=== PATIENT | female | born 1950 | race Caucasian/White ===

== ENCOUNTER 2019-12-30 16:10 | Inpatient (IN) ==
[2019-12-30] MEDS ORDERED: HYDROmorphone 0.5 MG/0.5 ML SYRINGE IV ONE ×2 (16:24→17:52)
--- NOTE | 2019-12-30 16:37 | Emergency Department Note ---
Lower Extremity Injury HPI General Chief Complaint: Extremity Injury, Lower Stated Complaint: Right leg and hip pain Time Seen by Provider: 12/30/19 16:17 Source: patient Mode of arrival: wheelchair Limitations: no limitations History of Present Illness HPI Narrative: Narrative: 69-year-old female patient referred back to the emergency department for additional imaging. Patient was seen yesterday by a colleague after falling at home. During her visit she was worked up with radiographs of her right femur (this was decided for maximum pain yesterday). During this time the provider did not see any acute fractures. However, during further review by the radiologist he noted a possible right subcapital hip fra cture. He recommended further imaging. She is here to obtain those images. She complains of persistent and worsening right hip pain. She is currently suffering from chronic pain and is under a pain contract by her primary care providers. She currently rates her pain at 7/10. She has been nonweightbearing since the injury yesterday.. She mentions that the pain shoots down her leg at times. She has past history of pelvic fracture back in August of this year. ROS: Denies systemic illness, fever, sweats, chills. Denies headaches, tinnitus, or vision changes. Denies runny nose, sinus congestion, or cough. Denies shortness of breath. Denies retrosternal chest pain or palpitations. Denies abdominal pain, nausea, or vomiting. Admits to chronic diarrhea diarrhea. Admits to generalized weakness. Related Data Home Medications Medication Instructions Recorded Confirmed hydrocodone-acetaminophen 1 tab PO Q6HP PRN 09/27/19 12/30/19 cholestyramine (with sugar) 4 gram 4 g PO QDAY each 10/27/19 12/30/19 powder for susp in a packet cholecalciferol (vitamin D3) 50 3,000 mcg PO QDAY cap 11/29/19 12/30/19 mcg (2,000 unit) capsule aspirin 81 mg tablet,delayed 81 mg PO QDAY 12/16/19 12/30/19 release Previous Rx's Medication Instructions Recorded lisinopril 20 mg tablet 20 mg PO QDAY #30 tab 10/27/19 hydrocodone-acetaminophen 1 tab PO Q4H PRN #10 tab 12/30/19 Allergies Allergy/AdvReac Type Severity Reaction Status Date / Time No Known Drug Allergies Allergy Verified 12/30/19 03:18 Review of Systems ROS ROS Narrative: Narrative: All systems ED: reviewed and negative except as stated. [facility] Narrative Patient History Narrative: Narrative: Medical/Surgical/Family History All Active Problems (Updated 12/30/19 @ 19:37 by Kota Gomez PA-C) Fall (Acute) Hip sprain (Acute) Closed fracture of right hip (Acute) Inability to walk (Chronic) Macrocytosis (Chronic) Microscopic hematuria (Chronic) Smoker (Chronic) Free monoclonal light chain (Chronic) Osteoporosis (Chronic) Solitary pulmonary nodule on lung CT (Chronic) Gallstone (Chronic) Coronary atherosclerosis (Chronic) Hypokalemia due to loss of potassium (Chronic) Ulnar nerve palsy (Chronic) Vitamin D deficiency (Chronic) Chronic pain (Chronic) Bowel obstruction (Chronic) Pelvic pain (Chronic) Acute renal failure (Chronic) Protein calorie malnutrition (Chronic) Hyponatremia (Chronic) Metabolic acidosis (Chronic) Cigarette smoker (Chronic) COPD (chronic obstructive pulmonary disease) (Chronic) Hypertension, essential (Chronic) Multiple pelvic fractures (Chronic) Medical History Acute renal failure (Chronic) Bowel obstruction (Chronic) Chronic pain (Chronic) Cigarette smoker (Chronic) COPD (chronic obstructive pulmonary disease) (Chronic) Coronary atherosclerosis (Chronic) Free monoclonal light chain (Chronic) Gallstone (Chronic) Hypertension, essential (Chronic) Lisinopril/HCT 1. Stop salt loading 2. Stop thiazides Hypokalemia due to loss of potassium (Chronic) HCTZ most likely cause Hyponatremia (Chronic) Most likely HCTZ and triggered by pain with broken pelvis with ADH release from pain response. Inability to walk (Chronic) Macrocytosis (Chronic) Metabolic acidosis (Chronic) Either volume contraction from thiazides and/or in response to COPD and underlying resp acidosis. Would need an ABG to ferret out but not really needed. Microscopic hematuria (Chronic) Multiple pelvic fractures (Chronic) From fall; early July 2019. Osteoporosis (Chronic) Pelvic pain (Chronic) Protein calorie malnutrition (Chronic) Smoker (Chronic) Solitary pulmonary nodule on lung CT (Chronic) Ulnar nerve palsy (Chronic) Vitamin D deficiency (Chronic) Surgical History History of appendectomy (Chronic) History of excision of lesion (Chronic) Pancreatic cyst History of intestinal surgery (Chronic) History of partial cystectomy (Chronic) History of repair of hip fracture (Chronic) History of total hysterectomy with bilateral salpingo-oophorectomy (BSO) (Chronic) Family History Mother Ovarian cancer Osteoporosis Malignant neoplastic disease Father Malignant neoplastic disease Sister Essential hypertension Malignant neoplastic disease Social History Smoking Status: Current every day smoker Alcohol Intake Frequency: holiday/special occasion only Substance Use: does not use Exam Narrative Narrative: Narrative: General Limitations: no limitations General appearance: other (Well-developed, cachectic and chronically ill- appearing 69-year-old female laying semirecumbent on the emergency room gurney in no acute respiratory distress.) Head Head: atraumatic and normocephalic Expanded Lower Extremity Hip/Pelvis: Present normal inspection, full ROM (Decreased range of motion with inward rotation.), tenderness (Exquisite tenderness to palpation of the right hip.) and pelvis stable; Absent swelling, ecchymosis, deformity, crepitus, dislocation, erythema, external rotation, internal rotation and shortening Upper leg: Present normal inspection and full ROM; Absent tenderness Leg image: 1. Area of maximal pain. Knee: Present normal inspection and full ROM; Absent tenderness Lower leg: Present normal inspection and full ROM; Absent tenderness Ankle: Present normal inspection and full ROM; Absent tenderness Foot/toe: Present normal inspection and full ROM; Absent tenderness Neurovascular/Tendon: Present normal capillary refill and motor deficit (Decreased strength testing secondary to worsening pain); Absent pulse deficit and sensory deficit Gait: unable to bear weight Back Back: Present normal inspection and full ROM Neurological Neurological: Present alert and oriented X3 Psychiatric Psychiatric: Present normal affect and anxious Skin Skin: Present warm, dry and normal color Course Course Course Narrative: Patient is obviously uncomfortable and was given Dilaudid 0.5 mg IVP. I discussed the choice of imaging modality with the radiologist who recommended CT scan of the hip without contrast. This was ordered and revealed Impacted right subcapital hip fracture. There is no acetabular fracture. Radiologist did mention bilateral pubic bone fractures and a bilateral sacral alar fractures (present from previous pelvic fracture on 08/09/2019). After reviewing this data I discussed the findings with the patient. She has known history of osteoporosis and significant pelvic fracture in the past. With all of this in mind, I reached out to the on-call orthopedic surgeon (Dr. Vasquez) and discussed the management with him. At this time the orthopedic surgeon says the fracture is a sort may need surgically corrected if there is a lot of instability or pain involved. I mentioned that the patient has been nonambulatory since yesterday and she continues to have considerable pain. He is requested the patient be admitted to the hospitalist service and that he would likely take her to the operating room tomorrow to surgically correct fracture. Knowing this, I reached out to the hospitalist (Dr. Aviles) discussed admission with him. At this time Dr. Aviles has requested that screening laboratory studies be ordered and reviewed prior to admission. CBC, CMP, UA, rapid COVID test were ordered. Patient continues to complain of considerable pain to her right hip joint. She was given a second Dilaudid 0.5 mg IVP. A review of the patient's diagnostics shows the following: CBC within normal limits. CMP also within normal limits. Afterward, the hospitalist (Dr. Aviles) reviewed the additional data and accepted the patient for admission. All further treatment decisions, modalities, and ultimate patient disposition will be carried out by Dr. Aviles. Vital Signs Vital signs: Vital Signs Temperature 99.1 F H 12/30/19 16:11 Pulse Rate 93 H 12/30/19 16:11 Respiratory Rate 17 12/30/19 16:11 Blood Pressure 146/75 12/30/19 16:11 Pulse Oximetry (%) 96 12/30/19 16:11 Temperature 98.8 F 12/30/19 19:23 Pulse Rate 90 12/30/19 19:08 Respiratory Rate 16 12/30/19 17:49 Blood Pressure 127/77 12/30/19 19:08 Pulse Oximetry (%) 91 12/30/19 19:08 MDM MDM Narrative Medical decision making narrative: Narrative: Lab Data Result diagrams: 12/30/19 18:15 12/30/19 18:15 Labs: Lab Results 12/30/19 12/30/19 Range/Units 18:15 18:15 WBC 8.8 (4.50-11.00) K/mcL RBC 4.38 (3.59-5.38) M/mcL Hgb 13.5 (11.2-15.7) g/dL Hct 42.4 (34.1-44.9) % MCV 96.8 (80.0-100.0) fL MCH 30.8 (26.0-34.0) pg MCHC 31.8 (31.0-36.0) g/dL RDW 14.4 (11.5-14.5) % Plt Count 241 (140-440) K/mcL MPV 8.6 (7.4-10.4) fL Gran % 79.9 H (38.0-78.0) % Lymph % (Auto) 12.7 L (15.5-49.0) % [place] % (Auto) 5.8 (1.0-12.0) % Eos % (Auto) 1.1 (0.0-7.0) % Baso % (Auto) 0.5 (0.0-2.0) % Gran # 7.01 (1.80-8.00) K/mcL Lymph # (Auto) 1.11 L (1.50-4.80) K/mcL [place] # (Auto) 0.51 (0.10-0.90) K/mcL Eos # (Auto) 0.10 (0.00-0.70) K/mcL Baso # (Auto) 0.04 (0.00-0.30) K/mcL Sodium 138 (133-145) mmol/L Potassium 3.8 (3.3-5.1) mmol/L Chloride 103 (96-108) mmol/L Carbon Dioxide 22 (22-30) mmol/L Anion Gap 13.0 (8-16) BUN 8 (8-23) mg/dl Creatinine 0.6 (0.6-1.1) mg/dl GFR Calculation 94 Glucose 90 (70-105) mg/dL Calcium 9.4 (8.6-10.4) mg/dl Total Bilirubin 0.7 (0.0-1.0) mg/dL AST 16 (0-37) U/l ALT 18 (0-40) U/l Alkaline Phosphatase 107 (39-117) U/L Total Protein 7.6 (5.9-8.4) gm/dL Albumin 4.4 (3.2-5.2) gm/dL Globulin 3.2 (2.2-3.7) gm/dL Albumin/Globulin Ratio 1.4 (1.0-2.3) Radiology Data Radiology results reviewed: Yes I reviewed the patient's radiology results. Radiology results narrative: Ordering Physician: Jaciel Lees M.D. Date of Service: 12/30/19 Procedure(s): XR femur ap & lat RT Accession Number(s): [id number] INDICATION: fall TECHNIQUE: AP and lateral femur COMPARISON: Previous pelvis and right hip dated 08/09/2019 FINDINGS: Right femoral diaphysis and distal right femur are negative. Right hip is not optimally evaluated in this right femur study. Findings are suspicious for subcapital right hip fracture. Right hip x-rays recommended. MRI or CT scan neck performed depending on clinical circumstances and appearance of additional radiographs. Previous examination demonstrated bilateral pubic bone fractures. Healed fracture deformity of the right pubic bone is demonstrated on present examination IMPRESSION: 1. Negative right femur 2. Possible right subcapital hip fracture. Further imaging recommended Interpreted and Authenticated by: Bishop De La Garza 12/30/19 Ordering Physician: Kota Gomez PA-C Date of Service: 12/30/19 Procedure(s): CT hip RT wo con Accession Number(s): [id number] INDICATION: Fell yesterday. Persistent hip pain. TECHNIQUE: Thin section images through the right hemipelvis and hip. Sagittal and coronal reformatted images COMPARISON: Previous right femur dated 12/30/2019 FINDINGS: Mildly impacted right subcapital hip fracture with slight valgus angulation. Articular surface of the right femoral head is negative. Intertrochanteric region is normal. Fractures of the sacral ala bilaterally. There are bilateral pubic bone fractures. Pubic bone fractures are not acute and were demonstrated on plain film examination dated 08/09/2019. The sacral fractures probably occurred at the same time. IMPRESSION: 1. Impacted right subcapital hip fracture. No acetabular fracture 2. Bilateral pubic bone fractures. Bilateral sacral alar fractures. Interpreted and Authenticated by: Bishop De La Garza 12/30/19 Discharge Plan Patient/Caregiver Discharge Instructions Pt seen by ANTIQUE REPAIRER/PA only: Yes Clinical Impression: Osteoporosis, COPD (chronic obstructive pulmonary disease) Closed fracture of right hip Qualifiers: Encounter type: initial encounter Qualified Code(s): S72.001A - Fracture of unspecified part of neck of right femur, initial encounter for closed fracture Fall Qualifiers: Encounter type: subsequent encounter Qualified Code(s): W19.XXXD - Unspecified fall, subsequent encounter Patient Disposition: Xfer As Outpt/Obs ([facility]) Condition: Fair Follow up with: Francisco Stephen MD [Primary Care Provider] - Prescriptions: No Action aspirin 81 mg tablet,delayed release (DR/EC) 81 mg PO QDAY RF: 0 cholestyramine (with sugar) 4 gram powder in packet 4 g PO QDAY RF: 0 lisinopril 20 mg tablet 20 mg PO QDAY Qty: 30 RF: 11 cholecalciferol (vitamin D3) 50 mcg (2,000 unit) capsule 3,000 mcg PO QDAY RF: 0 hydrocodone-acetaminophen 1 TAB tablet 1 tab PO Q6HP PRN (Reason: Pain) RF: 0 hydrocodone-acetaminophen 5-325 mg tablet 1 tab PO Q4H PRN (Reason: pain) Qty: 10 RF: 0
--- NOTE | 2019-12-30 17:16 | Cat Scan Report ---
INDICATION: Fell yesterday. Persistent hip pain. TECHNIQUE: Thin section images through the right hemipelvis and hip. Sagittal and coronal reformatted images COMPARISON: Previous right femur dated 12/30/2019 FINDINGS: Mildly impacted right subcapital hip fracture with slight valgus angulation. Articular surface of the right femoral head is negative. Intertrochanteric region is normal. Fractures of the sacral ala bilaterally. There are bilateral pubic bone fractures. Pubic bone fractures are not acute and were demonstrated on plain film examination dated 08/09/2019. The sacral fractures probably occurred at the same time. IMPRESSION: 1. Impacted right subcapital hip fracture. No acetabular fracture 2. Bilateral pubic bone fractures. Bilateral sacral alar fractures. Interpreted and Authenticated by: Bishop De La Garza 12/30/19
[2019-12-30 19:08] LABS: Basophils # (Auto) 0.04 K/mcL (0.00-0.30); Basophils % (Auto) 0.5 % (0.0-2.0); Eosinophils % (Auto) 1.1 % (0.0-7.0); Granulocytes % (Auto) 79.9 % (38.0-78.0); Hematocrit 42.4 % (34.1-44.9); Hemoglobin 13.5 g/dL (11.2-15.7); Lymphocytes # (Auto) 1.11 K/mcL (1.50-4.80); Lymphocytes % (Auto) 12.7 % (15.5-49.0); Mean Cell Volume 96.8 fL (80.0-100.0); Mean Corpuscular HGB Conc 31.8 g/dL (31.0-36.0); Mean Platelet Volume 8.6 fL (7.4-10.4); Monocytes # (Auto) 0.51 K/mcL (0.10-0.90); Monocytes % (Auto) 5.8 % (1.0-12.0); Platelet Count 241 K/mcL (140-440); RBC 4.38 M/mcL (3.59-5.38); Red Cell Distribution Width 14.4 % (11.5-14.5); WBC 8.8 K/mcL (4.50-11.00)
--- NOTE | 2019-12-30 19:24 | Internal Med History&Physical ---
HPI History of Present Illness Patient information: Note initiated : 12/30/19 at 7:19 pm Service Date, if different from initiated Date: [] Patient: Malaika Dejesus a 69 y/o F admitted on for Right leg and hip pain. Chief Complaint: Fall/hip pain History of present illness: Ms. Dejesus is a 69 year old F with a history of hypertension who was visiting her friend and on her way out tripped on her own quad cane landing on the floor. She was brought in the ER yesterday when initial work-up was unremarkable. However on review she was noted to have a right subcapital hip fracture. Subsequently orthopedics was consulted and patient was advised hospitalization for hip fracture repair. Hospital service was consulted At the time evaluation patient is accompanied with her friend. She was able to answer most of the questions. She denied resting events including lightheadedness dizziness. She denied associated fever chills. Pain is currently well controlled on opioids. Review of systems A 10 point review system was performed and is negative except for ones cussed above [facility] Medical History Acute renal failure (Chronic) Bowel obstruction (Chronic) Chronic pain (Chronic) Cigarette smoker (Chronic) COPD (chronic obstructive pulmonary disease) (Chronic) Coronary atherosclerosis (Chronic) Free monoclonal light chain (Chronic) Gallstone (Chronic) Hypertension, essential (Chronic) Lisinopril/HCT 1. Stop salt loading 2. Stop thiazides Hypokalemia due to loss of potassium (Chronic) HCTZ most likely cause Hyponatremia (Chronic) Most likely HCTZ and triggered by pain with broken pelvis with ADH release from pain response. Inability to walk (Chronic) Macrocytosis (Chronic) Metabolic acidosis (Chronic) Either volume contraction from thiazides and/or in response to COPD and underlying resp acidosis. Would need an ABG to ferret out but not really needed. Microscopic hematuria (Chronic) Multiple pelvic fractures (Chronic) From fall; early July 2019. Osteoporosis (Chronic) Pelvic pain (Chronic) Protein calorie malnutrition (Chronic) Smoker (Chronic) Solitary pulmonary nodule on lung CT (Chronic) Ulnar nerve palsy (Chronic) Vitamin D deficiency (Chronic) Surgical History History of appendectomy (Chronic) History of excision of lesion (Chronic) Pancreatic cyst History of intestinal surgery (Chronic) History of partial cystectomy (Chronic) History of repair of hip fracture (Chronic) History of total hysterectomy with bilateral salpingo-oophorectomy (BSO) (Chronic) Family History Mother Ovarian cancer Osteoporosis Malignant neoplastic disease Father Malignant neoplastic disease Sister Essential hypertension Malignant neoplastic disease Social History (Updated 12/16/19 @ 11:43 by Beulah Sandoval) marital status: occupational status: retired occupation: Nurse leisure activities: other smoking status: Current every day smoker alcohol intake frequency: holiday/special occasion only substance use type: does not use MEDS/ALLERGIES Home Medications and Allergies Home Medications Medication Instructions Recorded Confirmed Type hydrocodone-acetaminophen 1 tab PO Q6HP PRN 09/27/19 12/30/19 History cholestyramine (with sugar) 4 gram 4 g PO QDAY each 10/27/19 12/30/19 History powder for susp in a packet lisinopril 20 mg tablet 20 mg PO QDAY #30 tab 10/27/19 12/30/19 Rx cholecalciferol (vitamin D3) 50 3,000 mcg PO QDAY cap 11/29/19 12/30/19 History mcg (2,000 unit) capsule aspirin 81 mg tablet,delayed 81 mg PO QDAY 12/16/19 12/30/19 History release hydrocodone-acetaminophen 1 tab PO Q4H PRN #10 tab 12/30/19 12/30/19 Rx Allergies Allergy/AdvReac Type Severity Reaction Status Date / Time No Known Drug Allergies Allergy Verified 12/30/19 03:18 EXAM Constitutional Vitals: Temp Pulse Resp BP Pulse Ox 99.1 F H 90 16 127/77 91 12/30/19 16:11 12/30/19 19:08 12/30/19 17:49 12/30/19 19:08 12/30/19 19:08 Head normocephalic Oral cavity moist No ear nose discharge Eye movement symmetrical Neck supple no lymphadenopathy S1-S2 occasionally irregular Nonlabored breathing Nondistended nontender abdomen Right lower extremity externally rotated, no cyanosis clubbing, joint swelling Skin no suspicious lesion Psych anxious but alert cooperative Neuro normal higher function DATA Data Completed and Pending Labs on day of discharge: Labs from last 24 hours 12/30/19 12/30/19 18:15 18:15 WBC 8.8 RBC 4.38 Hgb 13.5 Hct 42.4 MCV 96.8 MCH 30.8 MCHC 31.8 RDW 14.4 Plt Count 241 MPV 8.6 Gran % 79.9 H Lymph % (Auto) 12.7 L [place] % (Auto) 5.8 Eos % (Auto) 1.1 Baso % (Auto) 0.5 Gran # 7.01 Lymph # (Auto) 1.11 L [place] # (Auto) 0.51 Eos # (Auto) 0.10 Baso # (Auto) 0.04 Sodium Pending Potassium Pending Chloride Pending Carbon Dioxide Pending Anion Gap Pending BUN Pending Creatinine Pending GFR Calculation Pending Glucose Pending Calcium Pending Total Bilirubin Pending AST Pending ALT Pending Alkaline Phosphatase Pending Total Protein Pending Albumin Pending Globulin Pending Albumin/Globulin Ratio Pending A/P Narrative A/P Narrative: * Right hip fracture-continue pain management/keep n.p.o./orthopedic consult. Patient undergo operative intervention 7/10 a.m. * Preop risk evaluation-overall moderate to high risk however no prior history of CHF/CVA/ACS/decompensated heart failure or CKD. No history of IDDM. Recommend maintaining intraoperative map over 65 to maintain adequate cerebral and coronary perfusion. Patient will be a good rehab candidate. Continue postop capnometry/incentive spirometer use * History of hypertension hold DOMONIQUE inhibitor and restart postoperative once systolic over 140 * Prophylaxis SCDs Plan * Inpatient admit * Orthopedic consult * Pain management * N.p.o. after midnight * Hold DOMONIQUE inhibitor * PT OT nutrition support following surgery Time Spent With Patient Time: Total time spent is greater than 50% in coordination of care (as documented) at patient's floor/unit and/or counseling patient: Total time spent with greater than 50% in coordination of care (as documented) at patient's floor/unit and/or counseling patient:: Greater than 35 minutes
[2019-12-30 19:27] LABS: ALT/SGPT 18 U/l (0-40); AST/SGOT 16 U/l (0-37); Albumin 4.4 gm/dL (3.2-5.2); Albumin/Globulin Ratio 1.4 (1.0-2.3); Alkaline Phosphatase 107 U/L (39-117); Bilirubin,Total 0.7 mg/dL (0.0-1.0); Blood Urea Nitrogen 8 mg/dl (8-23); Calcium 9.4 mg/dl (8.6-10.4); Carbon Dioxide 22 mmol/L (22-30); Chloride 103 mmol/L (96-108); Globulin 3.2 gm/dL (2.2-3.7); Glomerular Filtration Rate 94; Glucose 90 mg/dL (70-105)
[2019-12-30] MEDS ORDERED: METOPROLOL TARTRATE 5 MG/5 ML VIAL IV PRN (20:59)
[2019-12-30] MEDS ORDERED: ACETAMINOPHEN 650 MG/65 ML BOTTLE IV PRN (20:59)
[2019-12-30] MEDS ORDERED: ONDANSETRON 4 MG/2 ML VIAL IV PRN (20:59)
[2019-12-30] MEDS ORDERED: hydrALAZINE 20 MG/ML VIAL IV PRN (20:59)
[2019-12-30] MEDS ORDERED: BISACODYL 10 MG SUPP.RECT PR PRN (20:59)
[2019-12-30] MEDS ORDERED: HYDROCODONE/APAP 7.5/325MG TABLET PO PRN (20:59)
[2019-12-30] MEDS ORDERED: MELATONIN 3 MG TABLET PO PRN (20:59)
[2019-12-30] MEDS ORDERED: POTASSIUM CHLORIDE 20 MEQ PACKET PO PRN (20:59)
[2019-12-30] MEDS ORDERED: MAGNESIUM SULFATE 2 GM/50 ML BAG IV PRN (20:59)
[2019-12-30] MEDS ORDERED: ONDANSETRON 4 MG ODT TABLET SL PRN (20:59)
[2019-12-30] MEDS ORDERED: ACETAMINOPHEN 325 MG TABLET PO PRN (20:59)
[2019-12-30] MEDS ORDERED: POLYETHYLENE GLYCOL 3350 17 GM PACKET PO PRN (20:59)
[2019-12-30] MEDS ORDERED: ACETAMINOPHEN 600 MG/60 ML BOTTLE IV PRN (21:15)
[2019-12-30] MEDS: HYDROmorphone 0.5 MG/0.5 ML SYRINGE IV PRN (21:34)
[2019-12-30] MEDS: SENNOSIDES/DOCUSATE SODIUM 1 TAB TABLET PO SCH (21:45)
[2019-12-30] MEDS: DOCUSATE SODIUM 100 MG CAPSULE PO SCH (21:45)
[2019-12-30] MEDS: 0.9 % SODIUM CHLORIDE 1,000 ML IV SCH (21:45)
[2019-12-30] MEDS: 0.9 % SODIUM CHLORIDE 10 ML SYRINGE IV SCH (21:51)
[2019-12-30] MEDS: HYDROcodone/APAP 5/325MG TABLET PO PRN (22:44)
[2019-12-30 23:02] LABS: Appearance,Urine CLEAR; Bilirubin,Urine NEG (NEG); Color,Urine YELLOW; Culture Indicated,Urine NO; Glucose,Urine (UA) NEGATIVE (NEG); Ketones,Urine NEG (NEG); Leukocyte Esterase,Urine NEG /uL (NEG); Nitrate,Urine NEG (NEG); Protein,Urine NEG (NEG); Specific Gravity,Urine 1.018 (1.000-1.035); Urine Blood NEG mg/dL (<0.03)
[2019-12-31] MEDS: 0.9 % SODIUM CHLORIDE 10 ML SYRINGE IV SCH ×3 (05:18→21:23)
[2019-12-31] MEDS: HYDROmorphone 0.5 MG/0.5 ML SYRINGE IV PRN ×2 (05:57→10:33)
[2019-12-31 06:59] LABS: Hemoglobin 11.4 g/dL (11.2-15.7); Mean Cell Volume 95.6 fL (80.0-100.0); Mean Corpuscular HGB Conc 32.6 g/dL (31.0-36.0); Mean Platelet Volume 8.9 fL (7.4-10.4); Platelet Count 204 K/mcL (140-440); RBC 3.66 M/mcL (3.59-5.38); Red Cell Distribution Width 14.6 % (11.5-14.5); WBC 7.2 K/mcL (4.50-11.00)
[2019-12-31 07:38] LABS: ALT/SGPT 12 U/l (0-40); AST/SGOT 13 U/l (0-37); Albumin 3.3 gm/dL (3.2-5.2); Albumin/Globulin Ratio 1.3 (1.0-2.3); Alkaline Phosphatase 77 U/L (39-117); Bilirubin,Direct < 0.2 mg/dL (0.0-0.3); Bilirubin,Total 0.4 mg/dL (0.0-1.0); Blood Urea Nitrogen 17 mg/dl (8-23); Calcium 8.5 mg/dl (8.6-10.4); Carbon Dioxide 18 mmol/L (22-30); Chloride 104 mmol/L (96-108); Globulin 2.5 gm/dL (2.2-3.7); Glomerular Filtration Rate 94; Glucose 91 mg/dL (70-105); Lactate Dehydrogenase 222 U/L (94-250); Phosphorous 3.6 mg/dL (2.7-4.5); Triglycerides 67 mg/dl (<150); Uric Acid 3.9 mg/dL (2.5-8.0)
[2019-12-31 08:26] LABS: Eosinophils % (Manual) 4 % (0-7); Lymphocytes % 17 % (15-49); Monocytes % (Manual) 10 % (1-12); Platelet Estimate NORMAL (NORMAL); RBC Morphology NORMAL (NORMAL); Segmented Neutrophils % 69 % (38-78)
[2019-12-31] MEDS ORDERED: ASPIRIN 81 MG TAB.CHEW PO SCH (09:00)
[2019-12-31] MEDS: MULTIVIT,THER IRON,CA,FA & MIN 1 TABLET PO SCH (09:45)
[2019-12-31] MEDS: DOCUSATE SODIUM 100 MG CAPSULE PO SCH ×2 (09:45→21:12)
--- NOTE | 2019-12-31 10:00 | Internal Med Progress Note ---
SUBJECTIVE Subjective Patient information: Note initiated : 12/31/19 at 9:57 am Service Date, if different from initiated Date: [] Patient: Malaika Dejesus a 69 y/o F admitted on 12/30/19 for Right leg and hip pain. Chief Complaint: [] Interval history: History of present illness: Ms. Dejesus is a 69 year old F with a history of hypertension who was visiting her friend and on her way out tripped on her own quad cane landing on the floor. She was brought in the ER yesterday when initial work-up was unremarkable. However on review she was noted to have a right subcapital hip fracture. Subsequently orthopedics was consulted and patient was advised hospitalization for hip fracture repair. Hospital service was consulted At the time evaluation patient is accompanied with her friend. She was able to answer most of the questions. She denied resting events including lightheadedness dizziness. She denied associated fever chills. Pain is currently well controlled on opioids. 12/30-patient doing better. Await surgery. Currently n.p.o. No overnight fever chills. Constitutional Vitals: Vital Signs Temp Pulse Resp BP Pulse Ox 98.4 F 75 18 107/65 90 12/31/19 03:49 12/31/19 03:49 12/31/19 03:49 12/31/19 03:49 12/31/19 03:49 Period Temp Pulse Resp BP Sys/Vilchis Pulse Ox Last 24 Hr 98.4 F-99.1 F 75-93 16-20 103-146/65-77 90-97 Intake and Output 12/30/19 12/31/19 12/31/19 21:59 05:59 13:59 Intake Total 330 Output Total 280 Balance 50 Weight 41.73 kg 41.73 kg Alert oriented Nonlabored breathing No anxiety Nondistended abdomen Intake & Output: Intake & Output 12/30/19 12/31/19 12/31/19 21:59 05:59 13:59 Intake Total 330 Output Total 280 Balance 50 Weight 41.73 kg 41.73 kg Intake: Oral 330 Output: Urine Catheter Amount 280 Other: Urine Appearance Uretheral (Fine) Clear Urine Color Dark Yellow Uretheral (Fine) Tea Colored Dark Yellow OBJ DATA Labs CBC & Chem 7: 12/31/19 05:50 12/31/19 05:50 Labs: Abnormal Lab Results 12/31/19 12/31/19 12/30/19 05:50 05:50 21:50 RDW 14.6 H Gran % Lymph % (Auto) Lymph # (Auto) Carbon Dioxide 18 L Calcium 8.5 L Total Protein 5.8 L Urine Urobilinogen 2.0 A 12/30/19 18:15 RDW Gran % 79.9 H Lymph % (Auto) 12.7 L Lymph # (Auto) 1.11 L Carbon Dioxide Calcium Total Protein Urine Urobilinogen Meds: Medications Acetaminophen (Tylenol) 650 mg PO Q4-6HP PRN; Protocol PRN Reason: Per Pain Protocol/Fever > 101 Hydrocodone Bitart/Acetaminophen (Protem 5/325mg) 1 tab PO Q4HP PRN; Protocol PRN Reason: pain Last Admin: 12/30/19 22:44 Dose: 1 tab Documented by: Aspirin (Aspirin) 81 mg PO DAILY [facility] Bisacodyl (Dulcolax) 10 mg AR Q2-3DAYS PRN PRN Reason: Constipation Cholestyramine Resin (Questran Light) 2 - 4 gm PO DAILY@0700 [facility] Docusate Sodium (Colace) 100 mg PO BID [facility] Last Admin: 12/31/19 09:45 Dose: Not Given Documented by: Hydralazine HCl (Apresoline) 10 mg IV Q4-6HP PRN PRN Reason: Hypertension Hydromorphone HCl (Dilaudid) 0 mg IV Q4HP PRN; Protocol PRN Reason: Per Pain Protocol Last Admin: 12/31/19 05:57 Dose: 0.5 mg Documented by: Sodium Chloride (Sodium Chloride 0.9%) 1,000 mls @ 50 mls/hr IV .Q20H [facility] Stop: 01/02/20 08:58 Last Admin: 12/30/19 21:45 Dose: 50 mls/hr Documented by: Magnesium Sulfate (Magnesium Sulfate) 2 gm in 50 mls @ 50 mls/hr IV UD PRN PRN Reason: MG = or < 1.7 Acetaminophen (Ofirmev) 600 mg in 60 mls @ 120 mls/hr IV Q6HP PRN; Protocol PRN Reason: Per Pain Protocol/Fever > 101 Iron Carb/Multivit/Garland/Folic Acid (Multivitamin W/Minerals) 1 tab PO DAILY [facility] Last Admin: 12/31/19 09:45 Dose: Not Given Documented by: Melatonin (Melatonin 3mg Tablet) 3 mg PO HSP PRN PRN Reason: Insomnia Metoprolol Tartrate (Lopressor) 5 mg IV Q5M PRN PRN Reason: Heart Rate > 140 bpm Ondansetron HCl (Zofran Odt) 4 mg SL Q4-6HP PRN; Protocol PRN Reason: Nausea And Vomiting Ondansetron HCl (Zofran) 4 mg IV Q4-6HP PRN; Protocol PRN Reason: Nausea And Vomiting Polyethylene Glycol (Miralax) 17 gm PO DAILYP PRN PRN Reason: Constipation Potassium Chloride (Klor-Con) 40 meq PO DAILYP PRN PRN Reason: K+ < 3.5 Senna/Docusate Sodium (Senna Plus Tablet) 1 tab PO HS [facility] Last Admin: 12/30/19 21:45 Dose: Not Given Documented by: Sodium Chloride (Saline Flush) 10 ml IV Q8 [facility] Last Admin: 12/31/19 05:18 Dose: Not Given Documented by: A/P Narrative A/P Narrative: * Right hip fracture-continue pain management/currently n.p.o. for surgery. Will review postop. * History of hypertension hold DOMONIQUE inhibitor and restart postoperative once sy stolic over 140 * Prophylaxis SCDs, start heparin post surgery Plan * Review postop * Continue pain management * Restart DOMONIQUE inhibitor post surgery once systolics over 140 * PT OT nutrition support following surgery * Case management coordinate discharge plan Time Spent With Patient Time: Total time spent is greater than 50% in coordination of care (as documented) at patient's floor/unit and/or counseling patient: Total time spent with greater than 50% in coordination of care (as documented) at patient's floor/unit and/or counseling patient:: Greater than 35 minutes QUALITY Stroke Symptom Onset Unknown: No VTE Deep Vein Thrombosis/Pulmonary Embolism Present on Admission: No
[2019-12-31] MEDS: CHOLESTYRAMINE/ASPARTAME 4 GM POWD.PACK PO SCH (10:48)
[2019-12-31] MEDS ORDERED: ceFAZolin 2 GM in DEXTROSE 5% IN WATER 50 ML IV SCH ×2 (11:15→12:45)
--- NOTE | 2019-12-31 11:50 | Consultation ---
DATE OF CONSULTATION: 12/31/2019 REQUESTING PROVIDER: Jaciel Lees M.D. CONSULTING PROVIDER: Dao Vasquez M.D. REASON FOR CONSULTATION: Right femoral neck fracture. HISTORY: This is a 69-year-old female who tripped apparently 2 days ago and had pain in her hip. She presented to the ER and got x-rays which they were thought to be negative, so she was discharged from the ER. She continued to have pain and unable to bear weight, so she returned to the ER, and a CT scan was obtained which showed she had a right subcapital femoral neck fracture. She does have history of recent nonoperative pelvic fractures. Her pain is made worse with weightbearing, better with rest. She denies any other significant associated injuries. PAST MEDICAL HISTORY: Renal failure, chronic pain, cigarette smoking, COPD, coronary artery disease, hypertension, and osteoporosis. PAST SURGICAL HISTORY: Appendectomy, pancreatic cyst excision, intestinal surgery, partial cystectomy, left hip fracture repair, and a total abdominal hysterectomy with bilateral salpingo-oophorectomy. MEDICATIONS: 1. Hydrocodone one p.o. q.6h. 2. Cholestyramine. 3. Lisinopril 20 mg a day. 4. Vitamin D3. 5. Aspirin 81 mg a day. ALLERGIES: No known drug allergies. SOCIAL HISTORY: She smokes every day. She is . She drinks alcohol only on special occasions and denies illicit drug use. FAMILY HISTORY: Positive for mother with ovarian cancer and osteoporosis. Father with cancer. Sister with hypertension and cancer. PHYSICAL EXAMINATION: VITAL SIGNS ON ADMISSION: Temperature 99.1, pulse 90, respirations 16, blood pressure 127/77, pulse ox 91%. GENERAL: She appears her stated age in no acute distress. She is oriented to person and place. Mood and affect are appropriate. HEART: Regular. LUNGS: Sound clear. EXTREMITIES: Bilateral upper extremities and left lower extremity show no obvious evidence of trauma and are normal to inspection, range of motion, stability and strength. Right lower extremity is normal to inspection. However, range of motion is limited secondary to pain. There is no gross instability noted. Her strength is diminished 3/5. Skin is intact. Sensation to light touch grossly intact. Pedal pulses are palpable. IMAGING: Her x-ray reviewed, as well CT scan that does show a mildly valgus impacted subcapital femoral neck fracture. There are multiple pubic symphysis and sacral fractures. IMPRESSION: Acute right subcapital valgus impacted femoral neck fracture in a 69-year-old female with multiple medical comorbidities. PLAN: I recommend proceeding with percutaneous screw fixation of the right femoral neck fracture. Risks of surgery were discussed, which include but are not limited to, bleeding; infection; injury to nerves, blood vessels, and other surrounding structures; nonunion or malunion of fracture; failure of hardware fixation; possibility of needing further surgeries. She understands and wishes to proceed. BJBrennen:siria Job ID: [id number] Doc ID: [id number] Dao Vasquez MD
[2019-12-31] MEDS ORDERED: MIDAZOLAM 2 MG/2 ML VIAL IV ONE (11:58)
[2019-12-31] MEDS ORDERED: fentaNYL 100 MCG/2 ML VIAL IV ONE (11:58)
[2019-12-31] MEDS ORDERED: GLYCOPYRROLATE 0.2 MG/ML VIAL IV ONE (11:58)
[2019-12-31] MEDS ORDERED: DEXAMETHASONE 10 MG/ML VIAL IV ONE (11:58)
[2019-12-31] MEDS ORDERED: KETAMINE 100 MG/ML ML IV ONE (11:58)
[2019-12-31] MEDS ORDERED: LIDOCAINE HCL/PF 100 MG/5 ML SYRINGE IV ONE (11:58)
[2019-12-31] MEDS ORDERED: ONDANSETRON 4 MG/2 ML VIAL IV ONE (11:58)
[2019-12-31] MEDS ORDERED: PROPOFOL 200 MG/20 ML VIAL IV ONE (11:58)
--- NOTE | 2019-12-31 12:35 | Brief Operative Note ---
Brief Operative Note Date of procedure: 12/31/19 Pre-op diagnosis: Right subcapital femoral neck fracture Post-op diagnosis: same Procedure: Right hip percutaneous pinning of subcapital femoral neck fracture Grafts/Implants: Yes (3 6.5 screws ) Anesthesia: GLMA Findings: valgus impacted femoral neck fracture Complications: none Surgeon: Dao Vasquez Professional Driver: Talat Treviño Estimated blood loss (cc): 30 Specimens Removed/Pathology: none sent Condition: stable Disposition: PACU
[2019-12-31] MEDS ORDERED: FLEETS ADULT ENEMA PR PRN (12:38)
[2019-12-31] MEDS ORDERED: BENZOCAINE/MENTHOL 1 LOZENGE PO PRN (12:38)
[2019-12-31] MEDS ORDERED: MAGNESIUM HYDROXIDE 30 ML ORAL.SUSP PO PRN (12:38)
[2019-12-31] MEDS ORDERED: BISACODYL 10 MG SUPP.RECT PR PRN (12:38)
[2019-12-31] MEDS ORDERED: fentaNYL 100 MCG/2 ML VIAL IV PRN (12:51)
[2019-12-31] MEDS ORDERED: METHOCARBAMOL 1,000 MG/10 ML VIAL IV PRN (12:51)
[2019-12-31] MEDS ORDERED: FLUMAZENIL 0.1 MG/ML ML IV PRN (12:51)
[2019-12-31] MEDS ORDERED: MEPERIDINE 25 MG/ML SYRINGE IV PRN (12:51)
[2019-12-31] MEDS ORDERED: NALOXONE HCL 0.4 MG/ML VIAL IV PRN (12:51)
[2019-12-31] MEDS ORDERED: ACETAMINOPHEN 600 MG/60 ML BOTTLE IV ONE (12:51)
[2019-12-31] MEDS ORDERED: IPRATROPIUM/ALBUTEROL 3 ML AMPUL.NEB NEB PRN (12:51)
[2019-12-31] MEDS ORDERED: LACTATED RINGERS 250 ML IV PRN (12:51)
[2019-12-31] MEDS ORDERED: LACTATED RINGERS 1,000 ML IV SCH (13:00)
--- NOTE | 2019-12-31 13:39 | XRay Report ---
INDICATION: right hip pinning right subcapital hip fracture TECHNIQUE: 0.5 minutes fluoroscopy and 2.82 mGy exposure utilized. Intraoperative spot films were obtained. Right hip pinning performed by Dr. Vasquez IMPRESSION: Intraoperative fluoroscopy and spot films utilized by Dr. Vasquez Interpreted and Authenticated by: Bishop De La Garza 12/31/19
[2019-12-31] MEDS: 0.9 % SODIUM CHLORIDE 1,000 ML IV SCH ×2 (13:52→17:29)
--- NOTE | 2019-12-31 13:56 | Operative Note ---
DATE OF OPERATION: 12/31/2019 PREOPERATIVE DIAGNOSIS: Valgus impacted, minimally displaced, right subcapital femoral neck fracture. POSTOPERATIVE DIAGNOSIS: Valgus impacted, minimally displaced, right subcapital femoral neck fracture. PROCEDURE PERFORMED: Percutaneous screw fixation of the right subcapital femoral neck fracture using three 6.5 mm screws. SURGEON: Dao Vasquez M.D. UX SPECIALIST: Neto Treviño PA-C. The PA's assistance was required for the safe and efficient completion of the entire case. This provider's expertise and technical skill were required throughout the case. The PA assisted with preoperative coordination, intraoperative retraction, wound closure, dressing and splint application, as well as postoperative documentation and care coordination. ANESTHESIA: General. DRAINS: None. SPECIMENS: None. COMPLICATIONS: None. BLOOD LOSS: 30 mL. POSTOPERATIVE CONDITION: Stable. INDICATIONS FOR SURGERY: This is a 69-year-old female who had a fall 2 days ago. She initially presented to the ER and x-rays were taken which were determined to be negative for fracture. She continued to have pain and returned getting a CT scan which showed a subcapital femoral neck fracture. FINDINGS AT SURGERY: As above. Post-fixation showed satisfactory fracture alignment and screw position. PROCEDURE IN DETAIL: The patient had been seen preoperatively. Informed consent had been obtained after discussion of risks and benefits of surgery. Risks including, but not limited to, bleeding; infection; injury to nerves, blood vessels, other surrounding structures; anesthetic risks; incomplete or no resolution of symptoms; nonunion or malunion of fracture; failure of hardware fixation; possibility of needing further surgery such as total hip arthroplasty. She understood and wished to proceed. Correct operative site was marked and then patient was taken to the operating room. General anesthesia induced. She was carefully positioned on the fracture table and then right lower extremity was placed in some gentle traction and internal rotation. Fluoro was brought in to verify fracture alignment and then the right hip and leg were carefully prepped and draped in normal sterile fashion. Timeout was performed verifying patient name, operative site, and plan. A pin was used under fluoroscopic guidance to identify our trajectory and then a small incision was made over the lateral proximal femur. We then spread down to bone with a tonsil and then a guide pin was placed, the initial pin being central on the lateral view and along the inferior neck on the AP view. Careful attention was made to start not below the lesser trochanter. Once we liked the first pin placement, we used the Zapoint drill guide to place our proximal posterior and proximal anterior pins. Once we liked all three pin positions, we measured our length and then drilled the near cortex and then three 6.5 mm screws were placed. Fluoro was checked AP and lateral views, verifying screws in good position and not penetrating the articular surface. These were saved and then the wound was irrigated copiously with saline. Vicryl was used to close deep and then Monocryl for subcutaneous and ricardo for skin. Xeroform and sterile dressing were applied. The patient was then awakened, extubated, and transferred to recovery in stable condition. BJB:siria Job ID: [id number] Doc ID: [id number] Dao Vasquez MD
[2019-12-31] MEDS: HYDROcodone/APAP 5/325MG TABLET PO PRN ×2 (14:27→19:44)
[2019-12-31] MEDS ORDERED: SENNOSIDES 1 TABLET PO SCH (21:00)
[2019-12-31] MEDS ORDERED: 0.9 % SODIUM CHLORIDE 10 ML SYRINGE IV SCH (21:00)
[2019-12-31] MEDS: SENNOSIDES/DOCUSATE SODIUM 1 TAB TABLET PO SCH (21:13)
[2019-12-31] MEDS: ASPIRIN 325 MG ENTERIC COATED TABLET PO SCH (21:17)
[2019-12-31] MEDS: ceFAZolin 1 GM VIAL IV SCH (21:23)
[2020-01-01] MEDS: 0.9 % SODIUM CHLORIDE 1,000 ML IV SCH ×2 (04:04→13:39)
[2020-01-01] MEDS: HYDROcodone/APAP 5/325MG TABLET PO PRN ×4 (04:06→13:27)
[2020-01-01] MEDS: ceFAZolin 1 GM VIAL IV SCH (06:02)
[2020-01-01] MEDS: 0.9 % SODIUM CHLORIDE 10 ML SYRINGE IV SCH ×2 (06:02→14:39)
[2020-01-01 06:50] LABS: Hematocrit 33.7 % (34.1-44.9); Hemoglobin 10.8 g/dL (11.2-15.7); Mean Cell Volume 97.7 fL (80.0-100.0); Mean Platelet Volume 8.6 fL (7.4-10.4); Platelet Count 194 K/mcL (140-440); RBC 3.45 M/mcL (3.59-5.38); Red Cell Distribution Width 14.4 % (11.5-14.5); WBC 8.8 K/mcL (4.50-11.00)
[2020-01-01 07:10] LABS: ALT/SGPT 9 U/l (0-40); AST/SGOT 11 U/l (0-37); Albumin 3.2 gm/dL (3.2-5.2); Albumin/Globulin Ratio 1.2 (1.0-2.3); Alkaline Phosphatase 70 U/L (39-117); Bilirubin,Direct < 0.2 mg/dL (0.0-0.3); Bilirubin,Total 0.3 mg/dL (0.0-1.0); Blood Urea Nitrogen 22 mg/dl (8-23); Calcium 8.4 mg/dl (8.6-10.4); Carbon Dioxide 19 mmol/L (22-30); Chloride 100 mmol/L (96-108); Globulin 2.6 gm/dL (2.2-3.7); Glomerular Filtration Rate 90; Glucose 113 mg/dL (70-105); Lactate Dehydrogenase 206 U/L (94-250); Phosphorous 3.8 mg/dL (2.7-4.5); Triglycerides 100 mg/dl (<150); Uric Acid 4.3 mg/dL (2.5-8.0)
[2020-01-01] MEDS: ASPIRIN 325 MG ENTERIC COATED TABLET PO SCH (08:01)
[2020-01-01] MEDS: MULTIVIT,THER IRON,CA,FA & MIN 1 TABLET PO SCH (08:02)
[2020-01-01] MEDS: CHOLESTYRAMINE/ASPARTAME 4 GM POWD.PACK PO SCH (08:05)
[2020-01-01] MEDS: DOCUSATE SODIUM 100 MG CAPSULE PO SCH (08:06)
[2020-01-01 09:21] LABS: Lymphocytes % 10 % (15-49); Monocytes % (Manual) 6 % (1-12); Platelet Estimate NORMAL (NORMAL); RBC Morphology NORMAL (NORMAL); Segmented Neutrophils % 84 % (38-78)
--- NOTE | 2020-01-01 11:11 | Orthopedic Progress Note ---
SUBJECTIVE Subjective Patient information: Note initiated : 01/01/20 at 11:08 am Service Date, if different from initiated Date: [] Patient: Malaika Dejesus a 69 y/o F admitted on 12/30/19 for Right leg and hip pain. Chief Complaint: no c/o. pt doing well. Ready to discharge home. Interval history: Narrative: Constitutional Vitals: Vital Signs nvi-distal bandages c/d/i Temp Pulse Resp BP Pulse Ox 98.2 F 73 16 118/62 93 01/01/20 08:00 01/01/20 08:00 01/01/20 08:00 01/01/20 08:00 01/01/20 08:00 Period Temp Pulse Resp BP Sys/Vilchis Pulse Ox Last 24 Hr 97.6 F-98.9 F 60-97 14-18 112-161/51-80 92-100 Intake and Output 12/31/19 01/01/20 01/01/20 21:59 05:59 13:59 Intake Total 700 640 240 Output Total 760 400 500 Balance -60 240 -260 Weight 91 lb 14.4 oz Intake & Output: Intake & Output 12/31/19 01/01/20 01/01/20 21:59 05:59 13:59 Intake Total 700 640 240 Output Total 760 400 500 Balance -60 240 -260 Weight 91 lb 14.4 oz Intake: IV 260 Sodium Chloride 0.9% 1,000 ml @ 260 75 mls/hr IV .[id number] [facility] Rx#: [id number] Oral 440 640 240 Output: Urine Catheter Amount 760 400 Void Amount 500 Other: Meal Dinner Ice cream x2 Breakfast Percent of Meal Consumed 80% 100% 50% Feeding Ability Independent Independent Urine Appearance Clear Clear Clear Uretheral (Fine) Clear Clear Urine Color Pale Dark Yellow Bright Yellow Uretheral (Fine) Light Lisa Bright Yellow Urine Odor Normal Normal OBJ DATA Labs CBC & Chem 7: 01/01/20 05:05 01/01/20 05:05 Labs: Abnormal Lab Results 01/01/20 01/01/20 12/31/19 05:05 05:05 05:50 RBC 3.45 L Hgb 10.8 L Hct 33.7 L RDW Gran % Lymph % (Auto) Lymph # (Auto) Seg Neutrophils % 84 H Lymphocytes % 10 L Sodium 132 L Carbon Dioxide 19 L 18 L Glucose 113 H Calcium 8.4 L 8.5 L Total Protein 5.8 L 5.8 L Urine Urobilinogen 12/31/19 12/30/19 12/30/19 05:50 21:50 18:15 RBC Hgb Hct RDW 14.6 H Gran % 79.9 H Lymph % (Auto) 12.7 L Lymph # (Auto) 1.11 L Seg Neutrophils % Lymphocytes % Sodium Carbon Dioxide Glucose Calcium Total Protein Urine Urobilinogen 2.0 A Meds: Medications Acetaminophen (Tylenol) 650 mg PO Q4-6HP PRN; Protocol PRN Reason: Per Pain Protocol/Fever > 101 Hydrocodone Bitart/Acetaminophen (Cable 5/325mg) 1 tab PO Q4HP PRN; Protocol PRN Reason: pain Last Admin: 01/01/20 08:09 Dose: 1 tab Documented by: Aspirin (Ecotrin) 325 mg PO BID [facility] Last Admin: 01/01/20 08:01 Dose: 325 mg Documented by: Bisacodyl (Dulcolax) 10 mg TN Q2-3DAYS PRN PRN Reason: Constipation Cholestyramine Resin (Questran Light) 2 - 4 gm PO DAILY@0700 [facility] Last Admin: 01/01/20 08:05 Dose: Not Given Documented by: Docusate Sodium (Colace) 100 mg PO BID [facility] Last Admin: 01/01/20 08:06 Dose: Not Given Documented by: Hydralazine HCl (Apresoline) 10 mg IV Q4-6HP PRN PRN Reason: Hypertension Sodium Chloride (Sodium Chloride 0.9%) 1,000 mls @ 50 mls/hr IV .Q20H [facility] Stop: 01/02/20 08:58 Last Admin: 12/31/19 17:29 Dose: Not Given Documented by: Magnesium Sulfate (Magnesium Sulfate) 2 gm in 50 mls @ 50 mls/hr IV UD PRN PRN Reason: MG = or < 1.7 Acetaminophen (Ofirmev) 600 mg in 60 mls @ 120 mls/hr IV Q6HP PRN; Protocol PRN Reason: Per Pain Protocol/Fever > 101 Sodium Chloride (Sodium Chloride 0.9%) 1,000 mls @ 75 mls/hr IV .[id number] [facility] Last Admin: 01/01/20 04:04 Dose: Not Given Documented by: Iron Carb/Multivit/Audiovisual Tech/Folic Acid (Multivitamin W/Minerals) 1 tab PO DAILY [facility] Last Admin: 01/01/20 08:02 Dose: 1 tab Documented by: Magnesium Hydroxide (Milk Of Magnesia) 30 ml PO BIDP PRN PRN Reason: Constipation Melatonin (Melatonin 3mg Tablet) 3 mg PO HSP PRN PRN Reason: Insomnia Metoprolol Tartrate (Lopressor) 5 mg IV Q5M PRN PRN Reason: Heart Rate > 140 bpm Morphine Sulfate (Morphine) 0 mg IV Q1HP PRN; Protocol PRN Reason: Per Pain Protocol Last Admin: 12/31/19 23:59 Dose: 4 mg Documented by: Ondansetron HCl (Zofran Odt) 4 mg SL Q4-6HP PRN; Protocol PRN Reason: Nausea And Vomiting Ondansetron HCl (Zofran) 4 mg IV Q4-6HP PRN; Protocol PRN Reason: Nausea And Vomiting Polyethylene Glycol (Miralax) 17 gm PO DAILYP PRN PRN Reason: Constipation Potassium Chloride (Klor-Con) 40 meq PO DAILYP PRN PRN Reason: K+ < 3.5 Senna (Senokot) 2 tab PO [facility] Last Admin: 12/31/19 21:13 Dose: Not Given Documented by: Senna/Docusate Sodium (Senna Plus Tablet) 1 tab PO [facility] Last Admin: 12/31/19 21:13 Dose: Not Given Documented by: Sodium Biphosphate/Sodium Phosphate (Fleets Adult) 1 dose TN Q3-4DAYS PRN PRN Reason: Constipation Sodium Chloride (Saline Flush) 10 ml IV Q8 [facility] Last Admin: 01/01/20 06:02 Dose: 10 ml Documented by: Throat Lozenges (Cepacol) 1 lozenge PO PRN PRN PRN Reason: Sore Throat A/P Time Spent With Patient Time: Total time spent is greater than 50% in coordination of care (as documented) at patient's floor/unit and/or counseling patient: discharge to home today. Weight bear as tolerated with walker. Start out-pt PT. f/u in 2 weeks. daily dry dressing changes after 3 days.
--- NOTE | 2020-01-01 12:21 | Discharge Summary ---
Discharge Provider Provider Patient information: Note initiated : 01/01/20 at 12:18 pm Service Date, if different from initiated Date: [] Patient: Malaika Dejesus a 69 y/o F admitted on 12/30/19 for Right leg and hip pain. Chief Complaint: [] Date of admission: 12/30/19 20:54 Discharge date: 01/01/20 Primary care physician: Brian Stephen Consults: 12/30/19 Consult to Physician [CONS] Stat Comment: Consulting Provider: Champ Cisneros Reason For Exam: Physician to Consult Consult to Physician [CONS] Stat Comment: Consulting Provider: Dao Vasquez Reason For Exam: Physician to Consult Discharge Meds Discharge Medications Home Medications cholestyramine (with sugar) 4 gram powder for susp in a packet 4 g PO QDAY each 10/27/19 [History Confirmed 12/30/19 Last Taken 12/28/19 08:00] lisinopril 20 mg tablet 20 mg PO QDAY #30 tab 10/27/19 [Rx Confirmed 12/30/19 Last Taken 12/30/19 08:00] cholecalciferol (vitamin D3) 50 mcg (2,000 unit) capsule 3,000 mcg PO QDAY cap 11/29/19 [History Confirmed 12/30/19 Last Taken 12/30/19 08:00] aspirin 81 mg tablet,delayed release 81 mg PO QDAY 12/16/19 [History Confirmed 12/30/19 Last Taken 12/30/19 08:00] hydrocodone-acetaminophen 1 tab PO Q4-6HP PRN 12/30/19 [History Confirmed 12/30/19 Last Taken 12/30/19 08:00] potassium chloride 10 meq PO Q48H 12/30/19 [History Confirmed 12/30/19 Last Taken 12/29/19 08:00] aspirin 325 mg PO BID 30 Days #60 tab 01/01/20 [Rx Last Taken Unknown] hydrocodone-acetaminophen 1 - 2 tab PO Q4-6HP PRN #60 tab 01/01/20 [Rx Last Taken Unknown] COURSE Hospital Course Hospital Course: Discharge diagnosis * Right hip fracture-postop. Doing well. Discharging home as per Ortho recommendations * History of hypertension resume home medications Brief hospital course History of present illness: Ms. Dejesus is a 69 year old F with a history of hypertension who was visiting her friend and on her way out tripped on her own quad cane landing on the floor. She was brought in the ER yesterday when initial work-up was unremarkable. However on review she was noted to have a right subcapital hip fracture. Subsequently orthopedics was consulted and patient was advised hospitalization for hip fracture repair. Hospital service was consulted At the time evaluation patient is accompanied with her friend. She was able to answer most of the questions. She denied resting events including lightheadedness dizziness. She denied associated fever chills. Pain is currently well controlled on opioids. 12/30-patient doing better. Await surgery. Currently n.p.o. No overnight fever chills. 12/31-postop day 2. Doing well. Ambulating. Discharge advised by orthopedics. Patient feels at baseline. Discharging home with advised to follow-up with orthopedic/continue follow-up with PCP Discharge diagnosis: . Time Spent with Patient Time attestation: Total time spent providing and/or coordinating discharge services: Time spent: Greater than 30 minutes EXAM Constitutional Vitals: Temp Pulse Resp BP Pulse Ox 98.2 F 73 16 118/62 93 01/01/20 08:00 01/01/20 08:00 01/01/20 08:00 01/01/20 08:00 01/01/20 08:00 Discharge Data Data Completed and Pending Labs on day of discharge: Labs from last 24 hours 01/01/20 01/01/20 05:05 05:05 WBC 8.8 RBC 3.45 L Hgb 10.8 L Hct 33.7 L MCV 97.7 MCH 31.3 MCHC 32.0 RDW 14.4 Plt Count 194 MPV 8.6 Total Counted 100 Seg Neutrophils % 84 H Band Neutrophils % Not Reportable Lymphocytes % 10 L Monocytes % (Manual) 6 Platelet Estimate Normal RBC Morphology Normal Sodium 132 L Potassium 4.3 Chloride 100 Carbon Dioxide 19 L Anion Gap 13.0 BUN 22 Creatinine 0.7 GFR Calculation 90 Glucose 113 H Uric Acid 4.3 Calcium 8.4 L Phosphorus 3.8 Magnesium 1.7 Total Bilirubin 0.3 Direct Bilirubin < 0.2 GGT 16 AST 11 ALT 9 Alkaline Phosphatase 70 Lactate Dehydrogenase 206 Total Protein 5.8 L Albumin 3.2 Globulin 2.6 Albumin/Globulin Ratio 1.2 Triglycerides 100 Discharge Plan Patient/Caregiver Discharge Instructions Activity: increase activity as tolerated Diet: Regular Diet Instructions: Pelvic Fracture (DC) Prescriptions: New aspirin 325 mg Tablet,Delayed Release (Dr/Ec) 325 mg PO BID 30 Days Qty: 60 RF: 0 hydrocodone-acetaminophen 7.5-325 mg tablet 1 - 2 tab PO Q4-6HP PRN (Reason: pain) Qty: 60 RF: 0 Continued aspirin 81 mg tablet,delayed release (DR/EC) 81 mg PO QDAY RF: 0 cholestyramine (with sugar) 4 gram powder in packet 4 g PO QDAY RF: 0 lisinopril 20 mg tablet 20 mg PO QDAY Qty: 30 RF: 11 cholecalciferol (vitamin D3) 50 mcg (2,000 unit) capsule 3,000 mcg PO QDAY RF: 0 potassium chloride 10 mEq Capsule, Extended Release 10 meq PO Q48H RF: 0 hydrocodone-acetaminophen 7.5-325 mg Tablet 1 tab PO Q4-6HP PRN (Reason: Pain) RF: 0 Other Ambulatory Orders: Physical Therapy Discharge Order (Routine) Location: None Selected Ordered By: Talat Parson (ONCE) Location: None Selected Ordered By: Talat Treviño Follow Up Plan Follow up with: Francisco Stephen MD [Primary Care Provider] - Patient Disposition: Home, Self-Care Prognosis: Fair Discharge Orders: Discharge Order (Routine); Ordered 01/01/20 Ordered By: Champ KENDRICK VTE Deep Vein Thrombosis/Pulmonary Embolism Present on Admission: No
== END 2020-01-01 14:22 | disposition home or self-care (01) | DRG 481 ==
LOC: ED 16:10 → MEDSUR 20:54
PROVIDERS: ADMIT Internal Medicine; ATTEND Internal Medicine